=== PATIENT | female | born 1975 | race African-American/Black ===

== ENCOUNTER 2021-07-02 11:43 | Emergency (ER) | payer OTHER, MEDICAID ==
[~2021-07-02] VITALS: Ht 167.6 cm; Wt 73.0 kg
[2021-07-02] MEDS ORDERED: FAMOTIDINE 20MG/2ML VIAL IV STA (11:58)
[2021-07-02] MEDS ORDERED: SODIUM CHLORIDE 0.9% 1,000 ML IV ONE (12:00)
[2021-07-02] MEDS ORDERED: METHYLPREDNISOLONE SOD SUCC 125 MG/2 ML VIAL IV ONE (12:00)
[2021-07-02 13:18] LABS: HEMATOCRIT. 35.8 % (36.0-48.0); HEMOGLOBIN. 11.7 g/dL (12.0-16.0); MEAN CORPUSCULAR HEMOGLOBIN 25.3 pg (28.0-32.0); MEAN CORPUSCULAR VOLUME 77.5 fL (81.0-99.0); MEAN PLATELET VOLUME 8.7 fl (7.4-10.4); PLATELET 221 x1000/uL (130-400); RED BLOOD CELL COUNT 4.61 mill/uL (4.2-5.4); RED CELL DISTRIBUTION WIDTH 20.8 % (11.6-14.6)
[2021-07-02 13:25] LABS: CHLORIDE 112 mEq/L (98-107)
[2021-07-02] MEDS ORDERED: DIPHENHYDRAMINE 50MG/ML VIAL IV ONE (14:15)
[2021-07-02] MEDS ORDERED: DIPH25CA83 MT (14:24)
[2021-07-02] MEDS ORDERED: EPIN0.3P3 IM (14:24)
[2021-07-02] MEDS ORDERED: P20 MT (14:24)
[2021-07-02 14:40] LABS: CLARITY URINE CLEAR (CLEAR); COLOR URINE YELLOW (YELLOW); KETONES URINE NEGATIVE (NEGATIVE); LEUKOCYTE ESTERASE URINE NEGATIVE (NEGATIVE); NITRITE URINE NEGATIVE (NEGATIVE); OCCULT BLOOD URINE NEGATIVE (NEGATIVE); PH URINE 6.5 (4.5-8.0); PROTEIN URINE NEGATIVE (NEGATIVE); UROBILINOGEN URINE 0.2 E.U./dL (0.2-1.0)
[2021-07-02 16:00] VITALS: BP 124/74
[2021-07-02 17:37] LABS: PLATELET ESTIMATE NORMAL
== END 2021-07-02 16:34 | disposition home or self-care (01) ==
LOC: ER 11:43
DX: T78.40XA Allergy, unspecified, initial encounter (principal); E11.9 Type 2 diabetes mellitus without complications; I49.9 Cardiac arrhythmia, unspecified; Z88.4 Allergy status to anesthetic agent; Z91.011 Allergy to milk products; X58.XXXA Exposure to other specified factors, initial encounter
CPT/HCPCS: 36415; 80053; 81003; 81025; 83690; 85025; 93005; 96361; 96374; 96375; 99284; J1200; J2930; J3490; J7030